=== PATIENT | male | born 1970 | race African-American/Black ===

== ENCOUNTER → 2016-05-26 | Emergency (ER) | payer OTHER ==
[~2016-05-26] MED LIST: LOSARTAN 50MG/HCTZ 12.5MG 1 TAB (FP) PO SCH; METOPROLOL SUCCINATE 25 MG TAB.SR.24H (FP) PO SCH; amLODIPine BESYLATE 5 MG TABLET (FP) PO SCH
[2016-05-26 19:25] VITALS: BP 149/102; PULSE 84; TEMP 98.1; BMI 37.5
--- NOTE | 2016-05-26 19:37 | PDOC ---
History of Present Illness - General History Source: Patient Exam Limitations: No Limitations - History of Present Illness Presenting Symptoms: Chest Pain Timing/Duration: reports: intermittent <Annette Garvey - Last Filed: 05/26/16 22:37> <Pari Couch - Last Filed: 05/31/16 07:20> - General Chief Complaint: Chest Pain Stated Complaint: CHEST PAIN Time Seen by Provider: 05/26/16 19:32 Past History - Travel Traveled outside of the country in the last 30 days: No Close contact w/someone who was outside of country & ill: No - Past Medical History COPD: Yes (sleep apnea) HTN: Yes - Surgical History Cholecystectomy: Yes - Immunization History Td Vaccination: Yes Immunization Up to Date: Yes - Psycho/Social/Smoking Cessation Hx Anxiety: No Suicidal Ideation: No Smoking Status: No Smoking History: Never smoked Years of Tobacco Use: 0 Have you smoked in the past 12 months: No Number of Cigarettes Smoked Daily: 0 Cigars Per Day: 0 Information on smoking cessation initiated: No Hx Alcohol Use: No Drug/Substance Use Hx: No Substance Use Type: None <Annette Garvey - Last Filed: 05/26/16 22:37> <Pari Couch - Last Filed: 05/31/16 07:20> - Past Medical History Allergies/Adverse Reactions: Allergies Allergy/AdvReac Type Severity Reaction Status Date / Time No Known Allergies Allergy Verified 05/26/16 19:16 Home Medications: Ambulatory Orders Amlodipine Besylate [Norvasc -] 5 mg PO DAILY 11/26/15 Losartan/Hydrochlorothiazide [Losartan-Hctz 50-12.5 mg Tab] 1 each PO DAILY 11/01 Metoprolol Succinate [Toprol Xl -] 25 mg PO DAILY 01/25/16 Review of Systems - Review of Systems Able to Perform ROS?: Yes Is the patient limited Canadian proficient: No <Annette Garvey - Last Filed: 05/26/16 22:37> <Pari Couch - Last Filed: 05/31/16 07:20> - Review of Systems Comments:: 05/26/16 20:13 CONSTITUTIONAL: Absent: fever, chills, diaphoresis, generalized weakness, malaise, loss of appetite HEENT: Absent: rhinorrhea, nasal congestion, throat pain, throat swelling, difficulty swallowing, mouth swelling, ear pain, eye pain, visual Changes CARDIOVASCULAR: left substernal cp Absent: loss of consciousness, palpitations, irregular heart rate, peripheral edema RESPIRATORY: Absent: cough, shortness of breath, dyspnea with exertion, orthopnea, wheezing, stridor, hemoptysis GASTROINTESTINAL: Absent: abdominal pain, abdominal distension, nausea, vomiting, diarrhea, constipation, melena, hematochezia GENITOURINARY: Absent: dysuria, frequency, urgency, hesitancy, hematuria, flank pain, genital pain MUSCULOSKELETAL: Absent: myalgia, arthralgia, joint swelling SKIN: Absent: rash, itching, pallor HEMATOLOGIC/IMMUNOLOGIC: Absent: easy bleeding, easy bruising, lymphadenopathy, frequent infections ENDOCRINE: Absent: unexplained weight gain, unexplained weight loss, heat intolerance, cold intolerance NEUROLOGIC: frontal mild cisneros Absent: focal weakness or paresthesias, dizziness, unsteady gait, seizure, mental status changes, bladder or bowel incontinence PSYCHIATRIC: Absent: anxiety, depression, suicidal or homicidal ideation, hallucinations. ( Annette Garvey) *Physical Exam <Annette Garvey - Last Filed: 05/26/16 22:37> <Pari Couch - Last Filed: 05/31/16 07:20> - Vital Signs Last Vital Signs Temp Pulse Resp BP Pulse Ox 98.1 F 84 20 149/102 98 05/26/16 19:16 05/26/16 19:16 05/26/16 19:16 05/26/16 19:16 05/26/16 19:16 - Physical Exam Comments: 05/26/16 20:13 GENERAL: Well developed, well nourished. Awake and alert. No acute distress. HEENT: Normocephalic, atraumatic. PERRLA, EOMI. No conjunctival pallor. Sclera are non- icteric. Moist mucous membranes. Oropharynx is clear. NECK: Supple. Full ROM. No JVD. Carotid pulses 2+ and symmetric, without bruits. No thyromegaly. No lymphadenopathy. CARDIOVASCULAR: Regular rate and rhythm. No murmurs, rubs, or gallops. Distal pulses are 2+ and symmetric. PULMONARY: No evidence of respiratory distress. Lungs clear to auscultation bilaterally. No wheezing, rales or rhonchi. ABDOMINAL: Soft. Non-tender. Non-distended. No rebound or guarding. No organomegaly. Normoactive bowel sounds. MUSCULOSKELETAL Normal range of motion at all joints. No bony deformities or tenderness. No CVA tenderness. EXTREMITIES: No cyanosis. No clubbing. No edema. No calf tenderness. SKIN: Warm and dry. Normal capillary refill. No rashes. No jaundice. NEUROLOGICAL: Alert, awake, appropriate. Cranial nerves 2-12 intact. No deficits to light touch and temperature in face, upper extremities and lower extremities. No motor deficits in the in face, upper extremities and lower extremities. Normoreflexic in the upper and lower extremities. Normal speech. Toes are down- going bilaterally. Gait is normal without ataxia. PSYCHIATRIC: Cooperative. Good eye contact. Appropriate mood and affect. (Annette Garvey) Heart Score/ECG Review - History History: Slightly suspicious - Electrocardiogram EKG: Normal - Age Age: >/= 65 - Risk Factors Risk Factors Heart Score: Yes Positive family hx of cardiac disease, Yes Hx Obesity Based on the list above the patient has:: 1-2 risk factors - Troponin Troponin: </= normal limit - Score Heart Score - Total: 3 - ECG Intrepretation Rhythm: Regular Rhythm - Shafer Shafer: Normal <Annette Garvey - Last Filed: 05/26/16 22:37> ED Treatment Course - LABORATORY CBC & Chemistry Diagram: 05/26/16 19:41 05/26/16 19:41 <Annette Garvey - Last Filed: 05/26/16 22:37> - LABORATORY CBC & Chemistry Diagram: 05/26/16 19:41 05/26/16 19:41 <Pari Couch - Last Filed: 05/31/16 07:20> - ADDITIONAL ORDERS Additional order review: 05/26/16 19:41 RBC 4.99 MCV 85.1 MCHC 33.0 RDW 13.8 MPV 8.7 Neutrophils % 52.1 Lymphocytes % 34.4 D Monocytes % 10.3 H Eosinophils % 2.0 Basophils % 1.2 Progress Note <Annette Garvey - Last Filed: 05/26/16 22:37> <Pari Couch - Last Filed: 05/31/16 07:20> - Progress Note Progress Note: Rope Cutter: Dr. Jang [phone] PMD: Dr. Andersen [phone] 45-year-old male with a past medical history of questionable cardiac stenting 3 years ago at [place] presents to the emergency department complaining of left-sided substernal 8/10 nonradiating, pressure-like discomfort without nausea /vomiting, fevers/chills/diarrhea since yesterday. Patient states while driving to [employer] yesterday at approximately 11 AM, he felt a sudden onset of a frontal pressure-like headache. 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 Approximately 15 minutes later, his frontal headache subsided and he started experiencing left-sided chest pain without radiculopathy. Patient 's chest pain is alleviated with Excedrin which she took at 11 AM today. The pain is exacerbated on movement, deep inspiration. Patient spoke to his communications programmer who referred him to the emergency department. 2114hrs: Called Dr Jang 2149 hrs: Spoke to Dr. Shearer/communications programmer, req pt be admitted to obs and obtain 2nd set of troponin/6 hr after the first Req admit to pmd/Dr. Andersen 2156hrs: Called Dr. Andersen (Annette Garvey) *DC/Admit/Observation/Transfer <Annette Garvey - Last Filed: 05/26/16 22:37> <Pari Couch - Last Filed: 05/31/16 07:20> Diagnosis at time of Disposition: Chest pain Qualifiers: Chest pain type: chest pain on breathing Qualified Code(s): R07.1 - Chest pain on breathing - Discharge Dispostion Disposition: AGAINST MEDICAL ADVICE - Referrals Referrals: Margaret Andersen MD [Primary Care Provider] - Huy Pa MD [Staff Physician] - - Patient Instructions Printed Discharge Instructions: DI for Chest Pain Additional Instructions: You refused to stay in the emergency department for admission/observation. Your communications programmer has been notified of your complaints as you had informed him prior to coming to the ER and I have informed him after seeing you in the ER. We both agree that you should be admitted for observation but you adamantly refused. You understand that do not seem symptoms, results can be detrimental but not limited to severe heart condition, sudden , stroke. You informed to return back to the emergency department for persistent/ worsening symptoms. You insists on signing out AGAINST MEDICAL ADVICE. Your strongly advised numerous times to stay and be admitted but you adamantly refused. You constantly tell me that you will stay if the symptoms are worse. You have been informed that your blood pressure is not well controlled. You informed to follow-up with your primary care physician and communications programmer. - Attestations Physician Attestion: I reviewed the case with the mid-level practitioner and agree with the mid- level practitioner's assessment, diagnosis and disposition. (Pari Couch)
[2016-05-26 20:14] LABS: BASOPHIL 1.2 % (0-2.0); MCH 28.1 pg (25.7-33.7); MEAN CELL VOLUME 85.1 fl (80-96); MEAN PLT VOLUME 8.7 fl (7.5-11.1); NEUTROPHILS 52.1 % (42.8-82.8); PLATELET COUNT 247 K/MM3 (134-434); RDW 13.8 % (11.9-15.9); WHITE BLOOD COUNT 7.1 K/mm3 (4.0-10.0)
[2016-05-26 20:46] LABS: ALBUMIN 3.6 g/dl (3.4-5.0); ANION GAP 10 (8-16); BILIRUBIN,TOTAL 0.2 mg/dL (0.2-1.0); CALCIUM 8.6 mg/dL (8.5-10.1); CO2 27 mmol/L (21-32); CREATININE 1.3 mg/dL (0.7-1.3); GLUCOSE,RANDOM 86 mg/dL (74-106); SGPT/ALT 37 U/L (12-78); TOT PROT 7.5 g/dl (6.4-8.2)
[2016-05-26 20:49] LABS: ALK PHOS 71 U/L (45-117); TROPONIN I 0.03 ng/ml (0.00-0.05)
[2016-05-26 20:51] LABS: SGOT/AST 31 U/L (15-37)
--- NOTE | 2016-05-27 13:02 | EKG ---
Test Reason : Blood Pressure : / mmHG Vent. Rate : 062 BPM Atrial Rate : 062 BPM P-R Int : 168 ms QRS Dur : 076 ms QT Int : 418 ms P-R-T Axes : 025 -19 -05 degrees QTc Int : 424 ms NORMAL SINUS RHYTHM MODERATE VOLTAGE CRITERIA FOR LVH, MAY BE NORMAL VARIANT CANNOT RULE OUT SEPTAL INFARCT (CITED ON OR BEFORE 26-NOV-2015) ABNORMAL ECG WHEN COMPARED WITH ECG OF 25-JAN-2016 13:33, T WAVE AMPLITUDE HAS INCREASED IN ANTERIOR LEADS CLINICAL CORRELATION IS RECOMMENDED Confirmed by ABHISHEK ORTEGA, MACK ([id number]) on 05/27/2016 1:01:51 PM Referred By: Confirmed By:MACK WEISS MD
== END | disposition left against medical advice (07) ==
LOC: JER 19:09
DX: R07.1 Chest pain on breathing (principal); I10 Essential (primary) hypertension; J44.9 Chronic obstructive pulmonary disease, unspecified; G47.30 Sleep apnea, unspecified
CPT/HCPCS: 36415; 80053; 82550; 82553; 84484; 85025; 93005; 93010; 99282-25

== ENCOUNTER 2017-01-14 23:38 | Emergency (ER) | payer OTHER ==
[2017-01-15 00:43] VITALS: BP 125/90; PULSE 56; TEMP 97; BMI 35.4
[2017-01-15] MEDS ORDERED: TETRACAINE 0.5% OPHTH SOLN 2 ML BOTTLE OD ONE (00:57)
[2017-01-15] MEDS ORDERED: TETRACAINE 0.5% OPHTH SOLN 2 ML BOTTLE ONE (01:00)
--- NOTE | 2017-01-15 01:15 | PDOC ---
Attending Attestation - HPI HPI: 01/15/17 02:09 Patient is a 46 year old male with a significant past medical history of HTN, CAD with stent placement, and sleep apnea who presents to the ED s/p foreign object in right eye that occurred hour prior to arrival. Patient reports picking up garbage in a [employer] when a piece of garbage flew and stuck him in his right eye. Patient does not report applying anything to right eye after initial incident. Denies chest pain, SOB. Denies fever, chills. Denies nausea, vomiting. Denies any other symptoms. Allergies: None Social history: No smoking. No alcohol. No illicit drugs. Surgical history: Cholecystectomy. PMD: Dr. Andersen. <Luis F Norton - Last Filed: 01/15/17 02:09> - Resident Resident Name: Andrew Mendoza - ED Attending Attestation I have performed the following: I have examined & evaluated the patient, The case was reviewed & discussed with the resident, I agree w/resident's findings & plan, Exceptions are as noted - Physicial Exam PE: 01/15/17 01:29 *Physical Exam General Appearance: Yes: Appropriately Dressed. No: Apparent Distress, Intoxicated HEENT: positive: EOMI, CHANTELLE,FB on the lateral aspect of conjunctiva right eye, Normal ENT Inspection, Normal Voice, TMs Normal, Pharynx Normal. negative: Pale Conjunctivae, Photophobia, Scleral Icterus (R), Scleral Icterus (L) Neck: positive: Trachea midline, Normal Thyroid, Supple. negative: Tender, Rigid, Carotid bruit, Stridor, Lymphadenopathy (R), Lymphadenopathy (L), Thyromegaly Respiratory/Chest: positive: Lungs Clear, Normal Breath Sounds. negative: Chest Tender, Respiratory Distress, Accessory Muscle Use, Labored Respiration, RES, Crackles, Rales, Rhonchi, Stridor, Wheezing, Dullness Cardiovascular: positive: Regular Rhythm, Regular Rate, S1, S2. negative: Edema , JVD, Murmur, Bradycardia, Tachycardia Vascular Pulses: Dorsalis-Pedis (R): 2+, Doralis-Pedis (L): 2+ Gastrointestinal/Abdominal: positive: Normal Bowel Sounds, Flat, Soft. negative : Tender, Organomegaly, Pulsatile Mass, Increased Bowel Sounds, Decreased BS, Distended, Guarding, Rebound, Hernia, Hepatomegaly, Spleenomegaly Lymphatic: negative: Adenopathy, Tenderness Musculoskeletal: positive: Normal Inspection. negative: CVA Tenderness, Decreased Range of Motion Extremity: positive: Normal Capillary Refill, Normal Inspection, Normal Range of Motion, Pelvis Stable. negative: Tender, Pedal Edema, Swelling, Erythema Integumentary: positive: Normal Color, Dry, Warm. negative: Cyanotic, Erythema , Jaundice, Rash Neurologic: positive: dean of women II-XII NML intact, Fully Oriented, Alert, Normal Mood/ Affect, Motor Strength 5/5. negative: EOM Palsy, Facial Droop, Sensory Deficit - Medical Decision Making 01/15/17 19:45 Pt treated and released. <Zain Kenyon - Last Filed: 01/15/17 19:45>
[2017-01-15] MEDS ORDERED: ARTIFICIAL TEARS (POLYVINYL ALCOHOL 1.4%) OPTH DROPS OU ONE (01:38)
[2017-01-15] MEDS ORDERED: CIPROFLOXACIN 0.3% EYE DROPS 5 ML BOTTLE OD SCH (01:45)
[2017-01-15] MEDS ORDERED: CIPROFLOXACIN HCL 0.3% OPHTH 2.5ML BOTTLE ONE (01:55)
--- NOTE | 2017-01-15 02:13 | PDOC ---
History of Present Illness - General Chief Complaint: Foreign Body (FB) Stated Complaint: INJURY Time Seen by Provider: 01/15/17 00:31 - History of Present Illness Initial Comments: 01/15/17 07:56 46M with remote history of CAD presents to the ED after he found himself cleaning the garbage in a [employer] and felt an unidentified object lodge itself in his eye earlier this afternoon. He since complains of foreign object sensation but no photophobia, no discharge , no change in vision. Past History - Past Medical History Allergies/Adverse Reactions: Allergies Allergy/AdvReac Type Severity Reaction Status Date / Time No Known Allergies Allergy Verified 01/15/17 00:39 Home Medications: Ambulatory Orders Amlodipine Besylate [Norvasc -] 5 mg PO DAILY 11/26/15 Losartan/Hydrochlorothiazide [Losartan-Hctz 50-12.5 mg Tab] 1 each PO DAILY 11/01 Metoprolol Succinate [Toprol Xl -] 25 mg PO DAILY 01/25/16 COPD: Yes (sleep apnea) HTN: Yes - Surgical History Cholecystectomy: Yes - Immunization History Td Vaccination: Yes Immunization Up to Date: Yes - Suicide/Smoking/Psychosocial Hx Smoking Status: No Smoking History: Never smoked Years of Tobacco Use: 0 Have you smoked in the past 12 months: No Number of Cigarettes Smoked Daily: 0 Cigars Per Day: 0 Information on smoking cessation initiated: No Hx Alcohol Use: No Drug/Substance Use Hx: No Substance Use Type: None Review of Systems - Review of Systems Able to Perform ROS?: Yes Is the patient limited Macedonian proficient: No Constitutional: No: Symptoms Reported HEENTM: Yes: See HPI, Eye Pain. No: Blurred Vision, Tearing, Recent change in vision, Double Vision, Cataracts, Ear Pain, Ocular Prothesis, Ear Discharge Respiratory: No: Symptoms reported Cardiac (ROS): No: Symptoms Reported ABD/GI: No: Symptoms Reported : No: Symptoms Reported Musculoskeletal: No: Symptoms Reported Integumentary: No: Symptoms Reported Neurological: No: Symptoms reported *Physical Exam - Vital Signs Last Vital Signs Temp Pulse Resp BP Pulse Ox 97 F L 56 L 14 125/90 96 01/15/17 00:40 01/15/17 00:40 01/15/17 00:40 01/15/17 00:40 01/15/17 00:40 - Physical Exam General Appearance: Yes: Nourished, Appropriately Dressed, Mild Distress, Obese HEENT: positive: CHANTELLE, Normal ENT Inspection, Other (Brown unidentifiable [id number] object at 9o clock on the right ocular globe. ). negative: Muffled/ Hoarse voice Respiratory/Chest: positive: Lungs Clear, Normal Breath Sounds. negative: Chest Tender, Respiratory Distress Cardiovascular: positive: Regular Rhythm, Regular Rate, S1, S2 Vascular Pulses: Dorsalis-Pedis (R): 2+, Doralis-Pedis (L): 2+ Gastrointestinal/Abdominal: positive: Normal Bowel Sounds, Soft, Protuberent. negative: Tender Musculoskeletal: positive: Normal Inspection. negative: CVA Tenderness Extremity: positive: Normal Capillary Refill, Normal Inspection ED Treatment Course - Medications Given in the ED: ED Medications Discontinued Medications Generic Name Dose Route Start Last Admin Trade Name Freq PRN Reason Stop Dose Admin Tetracaine HCl 1 drop 01/15/17 00:57 01/15/17 01:01 Pontocaine OD 01/15/17 00:58 1 bottle ONCE ONE Administration Medical Decision Making - Medical Decision Making 01/15/17 08:03 46M with foreign object lodged in right eye. tetracaine applied to numb right eye globe. First attempt using q-tip unsuccessful. It seems that the object is lodged in deeper layers of the sclera. 12 hours have passed. Second attempt using 30g needle object touched but still not able to remove it. Patient states his eye feels more comfortable. Patient discharge with the rest of the tetracaine, clindamycin eye drops and lubricant eye drop with a referral to Dr. Nickolas Muñiz as well as the express recommendation to make an appointment as soon as possible for full removal of object, if possible within the next day or 2. *DC/Admit/Observation/Transfer Diagnosis at time of Disposition: Foreign body in eyeball, right - Discharge Dispostion Disposition: HOME Admit: No - Referrals Referrals: Margaret Andersen MD [Primary Care Provider] - Nickolas Muñiz MD [Staff Physician] - - Patient Instructions Printed Discharge Instructions: DI for Corneal Foreign Body-Eye, DI for Foreign Body in the Eye Additional Instructions: Call Dr. Nickolas Muñiz Ophtalmologist [facility] to schedule appointment for your eye. Use medication as directed. Come back to ER in the meantime for any new, concerning or worsening symptoms. - Post Discharge Activity
== END 2017-01-15 02:27 | disposition home or self-care (01) ==
LOC: JER 23:38
PROC: 08C0XZZ Extirpation of Matter from Right Eye, External Approach (ICD-10-PCS; principal; 2017-01-14)
DX: T15.81XA Foreign body in other and multiple parts of external eye, right eye, initial encounter (principal); X58.XXXA Exposure to other specified factors, initial encounter; Y93.89 Activity, other specified; Y92.22 Religious institution as the place of occurrence of the external cause; Y99.8 Other external cause status
CPT/HCPCS: 99281-25

== ENCOUNTER 2018-01-13 17:49 | Observation (INO) | payer OTHER ==
[2018-01-13 17:55] VITALS: BMI 35.4
--- NOTE | 2018-01-13 17:55 | PDOC ---
Rapid Medical Evaluation Time Seen by Provider: 01/13/18 17:52 Medical Evaluation: Allergies Allergy/AdvReac Type Severity Reaction Status Date / Time No Known Allergies Allergy Verified 01/15/17 00:39 01/13/18 17:52 I have performed a brief in-person evaluation of this patient. The patient presents with a chief complaint of: hemoptysis Pertinent physical exam findings: Lungs CTAB. RRR. S1S2. No m/r/g. Denies AC therapy. I have ordered the following: labs, CXR, EKG, urine The patient will proceed to the ED for further evaluation. Discharge Disposition - Diagnosis Hemoptysis - Referrals - Patient Instructions - Post Discharge Activity
[2018-01-13 19:03] LABS: BASO % 1.1 % (0-2.0); EOS % 2.9 % (0-4.5); HEMATOCRIT 44.1 % (35.4-49); HEMOGLOBIN 15.5 GM/dL (11.7-16.9); LYMPH % 20.5 % (8-40); MCH 29.8 pg (25.7-33.7); MCHC 35.1 g/dl (32.0-35.9); MEAN PLT VOLUME 9.2 fl (7.5-11.1); NEUT % 66.5 % (42.8-82.8); PLATELET COUNT 221 K/MM3 (134-434); RBC 5.19 M/mm3 (4.00-5.60); RDW 13.6 % (11.9-15.9)
[2018-01-13 19:26] LABS: INR 0.93 (0.83-1.09)
[2018-01-13 19:28] LABS: ALBUMIN 3.6 g/dl (3.4-5.0); ALK PHOS 90 U/L (45-117); ANION GAP 9 MMOL/L (8-16); BILIRUBIN,TOTAL 0.3 mg/dL (0.2-1); BLOOD UREA NITROGEN 19 mg/dL (7-18); CALCIUM 8.3 mg/dL (8.5-10.1); CHLORIDE 106 mmol/L (98-107); CO2 25 mmol/L (21-32); CREATININE 1.7 mg/dL (0.55-1.3); GLUCOSE,RANDOM 117 mg/dL (74-106); MAGNESIUM 2.5 mg/dL (1.8-2.4); POTASSIUM 3.6 mmol/L (3.5-5.1); SGOT/AST 18 U/L (15-37); SGPT/ALT 28 U/L (13-61); SODIUM 140 mmol/L (136-145); TOT PROT 7.7 g/dl (6.4-8.2)
--- NOTE | 2018-01-13 20:10 | PDOC ---
History of Present Illness - General Chief Complaint: Chest Pain Stated Complaint: PCP ADMIT/CHEST PAIN Time Seen by Provider: 01/13/18 17:52 History Source: Patient Exam Limitations: No Limitations - History of Present Illness Initial Comments: This is a 47 YOM with h/o CAD s/p cardiac cath and HTN who was referred into the ED for chest pain and blood-tinged sputum today after having been coughing a significant amount over the past 4 days. He was seen in his PCP Dr. Andersen's office today for the chest pain, had an EKG showing TWI in II, III, and aVF, and was sent to the ED for admission. Dr. Andersen has already spoken with Dr. Pa. Dr. Andersen requested a CT chest/abdomen/pelvis. The patient himself notes a low grade discomfort but no other symptoms. He denies massive bleeding while coughing. He denies f/c/n/v/d/c, black/bloody stool, SOB, diaphoresis, etc. Past History - Past Medical History Allergies/Adverse Reactions: Allergies Allergy/AdvReac Type Severity Reaction Status Date / Time No Known Allergies Allergy Verified 01/13/18 17:55 Home Medications: Ambulatory Orders Amlodipine Besylate [Norvasc -] 5 mg PO DAILY 11/26/15 Losartan/Hydrochlorothiazide [Losartan-Hctz 50-12.5 mg Tab] 1 each PO DAILY 11/01 Metoprolol Succinate [Toprol Xl -] 25 mg PO DAILY 01/25/16 Cardiac Disorders: Yes (cardiac cath) COPD: Yes (sleep apnea) HTN: Yes - Surgical History Cardiac Surgery: Yes (cardiac cath) Cholecystectomy: Yes - Immunization History Td Vaccination: Yes Immunization Up to Date: Yes - Suicide/Smoking/Psychosocial Hx Smoking Status: No Smoking History: Never smoked Years of Tobacco Use: 0 Have you smoked in the past 12 months: No Number of Cigarettes Smoked Daily: 0 Cigars Per Day: 0 Hx Alcohol Use: No Drug/Substance Use Hx: No Substance Use Type: None Review of Systems - Review of Systems Able to Perform ROS?: Yes Comments:: GEN: no fever, chills, malaise, generalized weakness, or weight change HEENT: no ear pain, sore throat, vision change, or eye pain CV: chest pain, no palpitations, lightheadedness, syncope, or edema RESP: cough, blood-tinged sputum, no wheezing, or SOB GI: upper abdominal pain, no nausea, vomiting, diarrhea, constipation, or white/ black/bloody stool : no dysuria, hematuria, incontinence, retention, bleeding, or discharge MSK: no neck/back pain, muscle weakness/pain, or joint swelling/pain NEURO: no headache, seizure, vertigo, numbness, tingling, or focal weakness PSYCH: no substance use, no behavior change SKIN: no jaundice, no rash ROS otherwise negative except as noted in HPI *Physical Exam - Vital Signs Last Vital Signs Temp Pulse Resp BP Pulse Ox 98.3 F 74 18 124/85 98 01/13/18 17:52 01/13/18 17:52 01/13/18 17:52 01/13/18 17:52 01/13/18 17:52 01/13/18 20:54 GENERAL: alert, comfortable, well-appearing, A/Ox4, no distress, answers questions appropriately, accompanied at bedside by female furniture manager HEENT: PERRLA, EOMI, moist mucous membranes NECK/BACK: no midline ttp, no spinal stepoff or deformity, no hematoma, full ROM , neck supple CARDIOVASCULAR: regular rate/rhythm, normal S1S2, no MGR, strong peripheral pulses, capillary refill <2 seconds, extremities wwp, no edema LUNGS/RESPIRATORY: no respiratory distress, CTAB GI/ABDOMEN: protuberant, symmetric [id number], normoactive BS, soft, no ttp, no midline pulsatile masses : no CVA tenderness EXTREMITIES: no muscle atrophy, no acute deformity, no edema SKIN: warm and dry, no pallor, no jaundice, no rash, no bruising, no skin breakdown, no cuts, no lesions NEUROLOGICAL: GCS 15, CN II-XII grossly intact, 5/5 strength proximally and distally, no facial droop Moderate Sedation - Procedure Monitoring Vital Signs: Procedure Monitoring Vital Signs Temperature 98.3 F 01/13/18 17:52 Pulse Rate 74 01/13/18 17:52 Respiratory Rate 18 01/13/18 17:52 Blood Pressure 124/85 01/13/18 17:52 O2 Sat by Pulse Oximetry (%) 98 01/13/18 17:52 Heart Score/ECG Review - History History: Slightly suspicious - Electrocardiogram EKG: Non specific repolarization disturbance - Age Age: 45-65 - Risk Factors Risk Factors Heart Score: Yes Hx Hypertension, Yes Hx Obesity Based on the list above the patient has:: 1-2 risk factors - Troponin Troponin: </= normal limit - Score Heart Score - Total: 3 #1 01/13/18 21:01 EKG performed 01/13/18 at 18:41 shows SR rate 64 with normal axis and intervals , TWI in III and aVF, no additional ST-T changes. ED Treatment Course - LABORATORY CBC & Chemistry Diagram: 01/13/18 18:43 01/13/18 18:43 - ADDITIONAL ORDERS Additional order review: Laboratory Results 01/13/18 01/13/18 18:43 18:43 PT with INR 11.00 INR 0.93 Sodium 140 Potassium 3.6 Chloride 106 Carbon Dioxide 25 Anion Gap 9 BUN 19 H Creatinine 1.7 H Creat Clearance w eGFR 43.23 Random Glucose 117 H Calcium 8.3 L Magnesium 2.5 H Total Bilirubin 0.3 AST 18 ALT 28 Alkaline Phosphatase 90 Creatine Kinase 155 Creatine Kinase Index 0.6 CK-MB (CK-2) < 1.0 Troponin I 0.04 Total Protein 7.7 Albumin 3.6 01/13/18 18:43 RBC 5.19 MCV 85.0 MCHC 35.1 RDW 13.6 MPV 9.2 Neutrophils % 66.5 D Lymphocytes % 20.5 D Monocytes % 9.0 Eosinophils % 2.9 Basophils % 1.1 Medical Decision Making - Medical Decision Making 01/13/18 20:06 Adult patient p/w hemoptysis. Initial Vital Signs Temp Pulse Resp BP Pulse Ox 98.3 F 74 18 124/85 98 01/13/18 17:52 01/13/18 17:52 01/13/18 17:52 01/13/18 17:52 01/13/18 17:52 Exam: As noted in Physical Exam section. DDX IBNLT PNA, CHF, lung malignancy, PE, tracheal or bronchial trauma e.g. from severe cough or FB, mitral stenosis, TB, granulomatosis with polyangiitis (lungs , upper airways, and kidneys), Goodpasture syndrome (lungs/lower airways and kidneys), Alport syndrome (hereditary nephritis), or secondary causes such as hematemesis (e.g. PUD, varices, esophagitis, gastritis, Simran-Denny, Boerhaave , etc), aortoenteric fistula, epistaxis, oropharyngeal trauma, etc. W/U ordered: CBCD CMP Mg Phos T&S Coags UA UCx CXR EKG TX ordered: IVF Pepcid Maalox EKG: Reviewed; results as noted in ECG Review section. CXR: Laboratory Tests 01/13/18 01/13/18 01/13/18 18:43 18:43 18:43 WBC 8.0 RBC 5.19 Hgb 15.5 Hct 44.1 MCV 85.0 MCH 29.8 MCHC 35.1 RDW 13.6 Plt Count 221 MPV 9.2 Absolute Neuts (auto) 5.3 Neutrophils % 66.5 D Lymphocytes % 20.5 D Monocytes % 9.0 Eosinophils % 2.9 Basophils % 1.1 Nucleated RBC % 0 PT with INR 11.00 INR 0.93 Sodium 140 Potassium 3.6 Chloride 106 Carbon Dioxide 25 Anion Gap 9 BUN 19 H Creatinine 1.7 H Creat Clearance w eGFR 43.23 Random Glucose 117 H Calcium 8.3 L Magnesium 2.5 H Total Bilirubin 0.3 AST 18 ALT 28 Alkaline Phosphatase 90 Creatine Kinase 155 Creatine Kinase Index 0.6 CK-MB (CK-2) < 1.0 Troponin I 0.04 Total Protein 7.7 Albumin 3.6 Urine Color Urine Appearance Urine pH Ur Specific [place] Urine Protein Urine Glucose (UA) Urine Ketones Urine Blood Urine Nitrite Urine Bilirubin Urine Urobilinogen Ur Leukocyte Esterase Urine WBC (Auto) Urine RBC (Auto) 01/13/18 20:00 WBC RBC Hgb Hct MCV MCH MCHC RDW Plt Count MPV Absolute Neuts (auto) Neutrophils % Lymphocytes % Monocytes % Eosinophils % Basophils % Nucleated RBC % PT with INR INR Sodium Potassium Chloride Carbon Dioxide Anion Gap BUN Creatinine Creat Clearance w eGFR Random Glucose Calcium Magnesium Total Bilirubin AST ALT Alkaline Phosphatase Creatine Kinase Creatine Kinase Index CK-MB (CK-2) Troponin I Total Protein Albumin Urine Color Ltyellow Urine Appearance Clear Urine pH 5.0 Ur Specific [place] 1.014 Urine Protein Negative Urine Glucose (UA) Negative Urine Ketones Negative Urine Blood 1+ H Urine Nitrite Negative Urine Bilirubin Negative Urine Urobilinogen Negative Ur Leukocyte Esterase Negative Urine WBC (Auto) <1 Urine RBC (Auto) 1 01/13/18 20:40 The Pt is unsafe for discharge at this time. They require further hospital observation, workup, and treatment. Microblog sent to [facility] for admission. Blank Decision to Admit order is placed per ED protocol. 01/13/18 20:35 I have spoken with Dr. Andersen who requests admission to Tele Obs. Dr. Andersen requests CT imaging of chest/abdomen/pelvis without contrast given JUDIE. 01/13/18 20:51 I have spoken with FUR PULLER Neema Saldana, patient going to Tele Obs. I have corrected the Decision to Admit order with Dr. Wright's name. I have placed consult order to Dr. Pa. *DC/Admit/Observation/Transfer Diagnosis at time of Disposition: Hemoptysis, JUDIE (acute kidney injury) Chest pain Qualifiers: Chest pain type: unspecified Qualified Code(s): R07.9 - Chest pain, unspecified - Discharge Dispostion Disposition: HOME Condition at time of disposition: Guarded Decision to Admit order: Yes - Referrals Referrals: Margaret Andersen MD [Primary Care Provider] - - Patient Instructions - Post Discharge Activity
[2018-01-13 20:22] LABS: URINE APPEARANCE CLEAR; URINE BILIRUBIN NEGATIVE (<2.0 mg/dL); URINE COLOR LTYELLOW; URINE GLUCOSE (UA) NEGATIVE (NEGATIVE); URINE KETONE NEGATIVE (NEGATIVE); URINE LEUK ESTERASE NEGATIVE (NEGATIVE); URINE NITRITE NEGATIVE (NEGATIVE); URINE PROTEIN NEGATIVE (NEGATIVE); URINE UROBILINOGEN NEGATIVE mg/dL (0.2-1.0)
--- NOTE | 2018-01-13 20:34 | PDOC ---
Attending Attestation - HPI HPI: 01/13/18 20:39 Patient is a 47 year old male with a significant past medical history of HTN, cardiac catheter, who presents to the ED with complaints of chest pain that began earlier today. Patient reports experiencing left lower chest pain that he states radiates towards his left arm, prompting him to see his PCP today. He reports PCP advised him to come into the ED for further evaluation and admission after conducting ECG that showed abnormal results. Patient reports experiencing associated symptoms of productive cough that began x5 days ago, with slight blood tinged sputum. Denies chest pain, Sob. Denies nausea, vomiting. Denies fevers, chills. Denies contact with sick individuals, out of state travelling.. Denies dysuria, hematuria. Denies diarrhea, constipation. Denies trauma to affected area. Denies any other symptoms. Allergies: None Social history: No smoking. No alcohol. No illicit drugs. Surgical history: x2 cardiac stents. PMD: Dr. Andersen <Luis F Norton - Last Filed: 01/13/18 20:39> - Resident Resident Name: Shayy Fernandez - ED Attending Attestation I have performed the following: I have examined & evaluated the patient, The case was reviewed & discussed with the resident, I agree w/resident's findings & plan, Exceptions are as noted - Physicial Exam PE: 01/13/18 20:34 Agree with exam as documented by resident - Medical Decision Making 01/13/18 22:12 Sent for admission from PCP for CP a/w new TWI on EKG f/u labs including cardiac markers, repeat ekg, cxr for admission to evtn ACS 01/13/18 22:14 <Bandar Yin - Last Filed: 01/13/18 22:14>
[2018-01-13] MEDS ORDERED: FAMOTIDINE 20 MG/50 ML IVPB 20 MG/50 ML MG IVPB ONE ×2 (20:39→22:09)
[2018-01-13] MEDS ORDERED: MAG HYDROX/AL HYDROX/SIMETH -MYLANTA- ORAL SUSPENSION PO ONE (20:39)
--- NOTE | 2018-01-13 20:41 | HP ---
Admitting History and Physical - Primary Care Physician PCP: Margaret Andersen - Admission Chief Complaint: Cough, Hemoptysis, Chest Pain, Epigastric Pain History of Present Illness: This is a 47 y/o man with a PMHx of: HTN, CAD (Cardiac Cath, denies Stent placement), Morbid Obesity, Herpes. Who presents to the ED for cough with hemoptysis, epigastric pain, and chest pain x3 days. Patient reports having epigastric pain, decreased appetite with burning to his chest. He reports having diarrhea over the last few day, now resolved. Patient reports having a productive cough with white-green phlegm since Thursday and noted blood tinged sputum yesterday. Patient reports going to his PMD today for eval, having an EKG which he was told was abnormal. Patient states that his EKG's are always "abnormal" which is why he had a Cardiac Cath which showed no blockage. Patient denies fever, chills, dizziness, CARRERA, SOB, N/V/constipation, melena, hematuria, dysuria. History Source: Patient Limitations to Obtaining History: No Limitations - Past Medical History Cardiovascular: Yes: CAD, HTN Infectious Disease: Yes: STD's (Herpes) - Past Surgical History Past Surgical History: Yes: Cholecystectomy Additional Past Surgical History: Cardiac Cath - Smoking History Smoking history: Never smoked Have you smoked in the past 12 months: No Aproximately how many cigarettes per day: 0 - Alcohol/Substance Use Hx Alcohol Use: No History of Substance Use: reports: None - Social History Usual Living Arrangement: Yes: With Spouse ADL: Independent History of Recent Travel: No Home Medications - Allergies Allergies/Adverse Reactions: Allergies Allergy/AdvReac Type Severity Reaction Status Date / Time No Known Allergies Allergy Verified 01/13/18 17:55 - Home Medications Home Medications: Ambulatory Orders Amlodipine Besylate [Norvasc -] 5 mg PO DAILY 11/26/15 Losartan/Hydrochlorothiazide [Losartan-Hctz 50-12.5 mg Tab] 1 each PO DAILY 11/01 Metoprolol Succinate [Toprol Xl -] 25 mg PO DAILY 01/25/16 Family Disease History - Family Disease History Family Disease History: Respiratory: Father (Pneumonia- ), Mother ( Asthma), Brother (Asthma), Sister (Asthma) Review of Systems - Review of Systems Constitutional: reports: Loss of Appetite. denies: Chills, Diaphoresis, Fever, Night Sweats, Weakness Eyes: reports: No Symptoms HENT: reports: No Symptoms Neck: reports: No Symptoms Cardiovascular: reports: Chest Pain Respiratory: reports: Hemoptysis Gastrointestinal: reports: Abdominal Pain, Diarrhea Genitourinary: reports: Frequency, Other (rash to groin) Breasts: reports: No Symptoms Reported Musculoskeletal: reports: No Symptoms Integumentary: reports: No Symptoms Neurological: reports: No Symptoms Endocrine: reports: No Symptoms Hematology/Lymphatic: reports: No Symptoms Psychiatric: reports: No Symptoms Physical Examination Vital Signs: Vital Signs Temperature 98.3 F 01/13/18 17:52 Pulse Rate 74 01/13/18 17:52 Respiratory Rate 18 01/13/18 17:52 Blood Pressure 124/85 01/13/18 17:52 O2 Sat by Pulse Oximetry (%) 98 01/13/18 17:52 Constitutional: Yes: Well Nourished, No Distress, Calm, Obese Eyes: Yes: WNL, Conjunctiva Clear, EOM Intact, PERRL HENT: Yes: Atraumatic, Normocephalic Neck: Yes: WNL, Supple, Trachea Midline Cardiovascular: Yes: WNL, Regular Rate and Rhythm, S1, S2 Respiratory: Yes: WNL, Regular, CTA Bilaterally Gastrointestinal: Yes: Normal Bowel Sounds, Soft, Abdomen, Obese, Tenderness, Epigastrium ...Rectal Exam: Yes: WNL Renal/: Yes: Other (patient declined exam of groin) Breast(s): Yes: WNL Musculoskeletal: Yes: WNL Extremities: Yes: WNL Edema: No Peripheral Pulses WNL: Yes Neurological: Yes: WNL ...Motor Strength: WNL Psychiatric: Yes: WNL, Alert, Oriented Labs: CBC, BMP 01/13/18 18:43 01/13/18 18:43 Laboratory Results - last 24 hr 01/13/18 01/13/18 01/13/18 18:43 18:43 18:43 WBC 8.0 RBC 5.19 Hgb 15.5 Hct 44.1 MCV 85.0 MCH 29.8 MCHC 35.1 RDW 13.6 Plt Count 221 MPV 9.2 Absolute Neuts (auto) 5.3 Neutrophils % 66.5 D Lymphocytes % 20.5 D Monocytes % 9.0 Eosinophils % 2.9 Basophils % 1.1 Nucleated RBC % 0 PT with INR 11.00 INR 0.93 Sodium 140 Potassium 3.6 Chloride 106 Carbon Dioxide 25 Anion Gap 9 BUN 19 H Creatinine 1.7 H Creat Clearance w eGFR 43.23 Random Glucose 117 H Calcium 8.3 L Magnesium 2.5 H Total Bilirubin 0.3 AST 18 ALT 28 Alkaline Phosphatase 90 Creatine Kinase 155 Creatine Kinase Index 0.6 CK-MB (CK-2) < 1.0 Troponin I 0.04 Total Protein 7.7 Albumin 3.6 Urine Color Urine Appearance Urine pH Ur Specific [place] Urine Protein Urine Glucose (UA) Urine Ketones Urine Blood Urine Nitrite Urine Bilirubin Urine Urobilinogen Ur Leukocyte Esterase Urine WBC (Auto) Urine RBC (Auto) 01/13/18 20:00 WBC RBC Hgb Hct MCV MCH MCHC RDW Plt Count MPV Absolute Neuts (auto) Neutrophils % Lymphocytes % Monocytes % Eosinophils % Basophils % Nucleated RBC % PT with INR INR Sodium Potassium Chloride Carbon Dioxide Anion Gap BUN Creatinine Creat Clearance w eGFR Random Glucose Calcium Magnesium Total Bilirubin AST ALT Alkaline Phosphatase Creatine Kinase Creatine Kinase Index CK-MB (CK-2) Troponin I Total Protein Albumin Urine Color Ltyellow Urine Appearance Clear Urine pH 5.0 Ur Specific [place] 1.014 Urine Protein Negative Urine Glucose (UA) Negative Urine Ketones Negative Urine Blood 1+ H Urine Nitrite Negative Urine Bilirubin Negative Urine Urobilinogen Negative Ur Leukocyte Esterase Negative Urine WBC (Auto) <1 Urine RBC (Auto) 1 Imaging - Results Chest X-ray: Image Reviewed Cat Scan: Report Reviewed, Image Reviewed Ultrasound: Report Reviewed, Image Reviewed EKG: Image Reviewed Problem List - Problems (1) Epigastric abdominal tenderness Assessment/Plan: Likely secondary to dyspepsia vs ACS Abdominal CT- slightly fluid filled, slightly distended loops, ?recent fluid ingestion vs possible diarrheal illness GI cocktail given in ED with some relief Monitor CBC, BMP Monitor vitals Pepcid Code(s): R10.816 - EPIGASTRIC ABDOMINAL TENDERNESS (2) Chest pain Assessment/Plan: r/o ACS HEART Score 4 JUSTINE 1 Continue cardiac monitoring Serial Enzymes Appreciate Cardiology consult Asa Echo Code(s): R07.9 - CHEST PAIN, UNSPECIFIED Qualifiers: Chest pain type: unspecified Qualified Code(s): R07.9 - Chest pain, unspecified (3) Hemoptysis Assessment/Plan: r/o PE vs TB Wells Score 1 CT Chest- no acute pathology Continue to monitor and treat with interventions accordingly Consider Pulmonology consult if condition worsens Code(s): R04.2 - HEMOPTYSIS (4) HTN (hypertension) Assessment/Plan: stable Monitor BP Patient unsure of current meds, will need the day team to confirm with pt's home pharmacy Monitor renal function Code(s): I10 - ESSENTIAL (PRIMARY) HYPERTENSION (5) CAD (coronary artery disease) Assessment/Plan: continue home meds when verified Asa EKG- reviewed Code(s): I25.10 - ATHSCL HEART DISEASE OF [place] CORONARY ARTERY W/O ANG PCTRS Assessment/Plan This is a 47 y/o man with a PMHx of HTN, CAD, RANDI. Placed in Tele Observation for Chest Pain r/o ACS, Hemoptysis, JUDIE for further evaluation of their emergent condition. FEN PO fluids as tolerated Replete lytes as needed Low Na Diet DVT ppx OOB SCDs Consider AC if LOS > 48 hrs Code Status: Full Code Dispo: Observation Visit type - Emergency Visit Emergency Visit: Yes ED Registration Date: 01/13/18 Care time: The patient presented to the Emergency Department on the above date and was hospitalized for further evaluation of their emergent condition. - New Patient This patient is new to me today: Yes Date on this admission: 01/13/18 - Critical Care Critical Care patient: No
[2018-01-13] MEDS ORDERED: MAG HYDROX/AL HYDROX/SIMETH 30 ML UNIT-DOSE CUP ONE (22:09)
[2018-01-14 07:18] LABS: BASO % 0.7 % (0-2.0); EOS % 3.8 % (0-4.5); HEMATOCRIT 42.5 % (35.4-49); HEMOGLOBIN 14.9 GM/dL (11.7-16.9); LYMPH % 20.5 % (8-40); MCH 29.9 pg (25.7-33.7); MCHC 35.1 g/dl (32.0-35.9); MEAN CELL VOLUME 85.2 fl (80-96); MEAN PLT VOLUME 8.9 fl (7.5-11.1); MONO % 12.5 % (3.8-10.2); NEUT % 62.5 % (42.8-82.8); PLATELET COUNT 193 K/MM3 (134-434); RBC 4.99 M/mm3 (4.00-5.60); WHITE BLOOD COUNT 6.7 K/mm3 (4.0-10.0)
[2018-01-14 07:45] LABS: ANION GAP 7 MMOL/L (8-16); BLOOD UREA NITROGEN 14 mg/dL (7-18); CALCIUM 8.2 mg/dL (8.5-10.1); CHLORIDE 106 mmol/L (98-107); CHOLESTEROL 104 mg/dL (50-200); CO2 28 mmol/L (21-32); CREATININE 1.3 mg/dL (0.55-1.3); GLUCOSE,RANDOM 94 mg/dL (74-106); HDL CHOLESTEROL 35 mg/dL (40-60); MAGNESIUM 2.5 mg/dL (1.8-2.4); PHOSPHOROUS 2.9 mg/dL (2.5-4.9); POTASSIUM 3.7 mmol/L (3.5-5.1); SODIUM 141 mmol/L (136-145); TRIGLYCERIDES 88 mg/dL (0-150)
[2018-01-14] MEDS ORDERED: FAMOTIDINE 20 MG/50 ML IVPB 20 MG/50 ML MG IVPB ONE (08:41)
[2018-01-14] MEDS ORDERED: ASPIRIN 81 MG CHEWABLE TABLETS ONE (08:41)
--- NOTE | 2018-01-14 09:28 | CON.CARD ---
Cardiology Consult (text) - Consultation Consultation Note: Consult Dictated IMP: Chronic HTN Hypertensive heart disease with LVH Non-obstructive CAD, ectatic coronaries Episode of scant hemoptysis REC: Low suspicion for pulmonary embolism: normal O2 saturation, no tachycardia and asx. Cardiac enzymes negative x 3 sets- ECG always has NSST changes secondary to LVH and hypertensive heart disease. Patient has had non-obstx disease on cath previously and no ischemia on nuclear stress 2016. Ok for outpatient f/u from CV standpoint. Further work up of ?hemoptysis as per PMD.
[2018-01-14] MEDS ORDERED: ASPIRIN 81 MG CHEWABLE TABLETS PO SCH (10:00)
[2018-01-14] MEDS ORDERED: FAMOTIDINE 20 MG/50 ML IVPB 20 MG/50 ML MG IVPB SCH (10:00)
--- NOTE | 2018-01-14 11:11 | CONS ---
CARDIOLOGY CONSULTATION DATE OF CONSULTATION: 01/14/2018 REQUESTING PHYSICIAN: Margaret Andersen MD REASON FOR CONSULTATION: Abnormal ECG. The patient is a 47-year-old male with a past medical history of chronic hypertension, hypertensive heart disease, non-obstructive coronary disease with ectatic coronary arteries on cardiac catheterization, who was sent to the emergency department for further evaluation after seeing his PMD yesterday and describing an episode of hemoptysis. Upon further questioning, the patient said he had a single episode of what he now describes as scant blood-tinged sputum approximately 1 week ago. He denies shortness of breath, fevers, or chills. He denies any recurrent hemoptysis. He denies exertional chest pain. He denies any lower extremity edema, PND, or orthopnea. PAST MEDICAL HISTORY: As above and includes chronic hypertension and LVH. ALLERGIES: He has no known drug allergies. CURRENT MEDICATIONS AT HOME: Include metoprolol succinate 25 mg p.o. daily, losartan/HCT 50/12.5 daily, and amlodipine 5 mg daily. FAMILY HISTORY: Negative for early coronary artery disease. SOCIAL HISTORY: Nonsmoker. 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 PHYSICAL EXAMINATION: General: He is alert, oriented. No distress. Vital Signs: Afebrile, temperature 98.2; pulse 62 and regular; blood pressure 118/88; 100% on room air. HEENT: Anicteric. Neck: No JVD or bruits. Heart: S1, S2. Regular. There is a S4 gallop. Chest: Clear. Abdomen: Mildly distended but soft and nontender. Extremities: No edema. ECG showed normal sinus rhythm at 64 beats per minute with nonspecific T-wave inversions inferiorly - patient has chronic nonspecific T-wave changes. His chest x-ray showed no acute pathology. White blood cell count 6.7, hematocrit 42.5, platelets 193. INR 0.93. Sodium 141, potassium 3.7. Creatinine normal at 1.3. Magnesium 2.5. CK 155. Troponin 0.04, 0.04, 0.04, negative x3 sets. Chest CT showed no acute pathology, done without contrast. IMPRESSION: 1. Chronic hypertension. 2. Hypertensive heart disease with left ventricular hypertrophy. 3. Non-obstructive coronary artery disease with ectatic coronary arteries. 4. Episode of scant hemoptysis, now resolved. RECOMMENDATIONS: There is low clinical suspicion for pulmonary embolism: Normal O2 saturation, no tachycardia, and patient is asymptomatic. Cardiac enzymes are negative x3 sets. His ECG always has nonspecific ST and T-wave changes that are secondary to his LVH and hypertensive heart disease. He has had nonobstructive coronary disease on catheterizations previously with ectatic coronary arteries, and a repeat stress test in 2016 showing no ischemia. From the cardiac standpoint, he is okay to follow up as an outpatient for chronic management of hypertension. Further workup of the questionable episode of hemoptysis as per PMD. Thank you. Will follow. ALKA JACKSON M.D. [id number]
--- NOTE | 2018-01-14 11:22 | DS ---
Physical Examination Vital Signs: Vital Signs Temperature 98.2 F 01/14/18 06:16 Pulse Rate 62 01/14/18 08:47 Respiratory Rate 17 01/14/18 08:47 Blood Pressure 118/88 01/14/18 08:47 O2 Sat by Pulse Oximetry (%) 98 01/14/18 08:52 Constitutional: Yes: Calm Cardiovascular: Yes: Regular Rate and Rhythm, S1, S2 Respiratory: Yes: CTA Bilaterally Gastrointestinal: Yes: Normal Bowel Sounds, Soft Edema: No Neurological: Yes: Alert, Oriented Labs: CBC, BMP 01/14/18 06:15 01/14/18 06:00 Discharge Summary Reason For Visit: ACUTE KIDNEY INJURY,HEMOPTYSIS,CHEST PAIN Current Active Problems JUDIE (acute kidney injury) (Acute) CAD (coronary artery disease) (Acute) Chest pain (Acute) Epigastric abdominal tenderness (Acute) HTN (hypertension) (Acute) Hemoptysis (Acute) Hospital Course: Primary Care Physician PCP: Margaret Andersen - Admission Chief Complaint: Cough, Hemoptysis, Chest Pain, Epigastric Pain History of Present Illness: This is a 47 y/o man with a PMHx of: HTN, CAD (Cardiac Cath, denies Stent placement), Morbid Obesity, Herpes. Who presents to the ED for cough with hemoptysis, epigastric pain, and chest pain x3 days. Patient reports having epigastric pain, decreased appetite with burning to his chest. He reports having diarrhea over the last few day, now resolved. Patient reports having a productive cough with white-green phlegm since Thursday and noted blood tinged sputum yesterday. Patient reports going to his PMD today for eval, having an EKG which he was told was abnormal. Patient states that his EKG's are always "abnormal" which is why he had a Cardiac Cath which showed no blockage. Patient denies fever, chills, dizziness, CARRERA, SOB, N/V/constipation, melena, hematuria, dysuria. in ER patient got aspirin and famotidine patient got Chest CT and abdomen CT scan no PE no appendicitis noted patient seen in ER no chest pain no sob no cough per patient he had just one episode when i he coughed and notice slight blood, he says he has not been coughing he went to his PMD yesterday and was sent in for abnormal EKG he says he has history of abnormal ekg no epigastric pain - patient is comfortable in bed Condition: Improved - Instructions Referrals: Margaret Andersen MD [Primary Care Provider] - Disposition: HOME - Home Medications Comprehensive Discharge Medication List: Ambulatory Orders Amlodipine Besylate [Norvasc -] 5 mg PO DAILY 11/26/15 Losartan/Hydrochlorothiazide [Losartan-Hctz 50-12.5 mg Tab] 1 each PO DAILY 11/01 Metoprolol Succinate [Toprol Xl -] 25 mg PO DAILY 01/25/16
[2018-01-14 11:53] VITALS: BP 128/84; PULSE 70; TEMP 98
--- NOTE | 2018-01-14 11:58 | EKG ---
Test Reason : Blood Pressure : / mmHG Vent. Rate : 064 BPM Atrial Rate : 064 BPM P-R Int : 182 ms QRS Dur : 088 ms QT Int : 400 ms P-R-T Axes : 034 -26 -20 degrees QTc Int : 412 ms NORMAL SINUS RHYTHM VOLTAGE CRITERIA FOR LEFT VENTRICULAR HYPERTROPHY NONSPECIFIC T WAVE ABNORMALITY ABNORMAL ECG WHEN COMPARED WITH ECG OF 26-MAY-2016 19:18, MINIMAL CRITERIA FOR SEPTAL INFARCT ARE NO LONGER PRESENT Confirmed by JACKSON ORTEGA, TIFFANIE ([id number]) on 01/14/2018 11:58:41 AM Referred By: Confirmed By:TIFFANIE PAZ MD
--- NOTE | 2018-01-14 14:47 | ECHO ---
Name: HOLLIEKOFI Exam:Adult Echocardiogram Study Date: 01/14/2018 07:42 AM Age: 47 yrs Reason For Study: Chest pain Height: 69 in Weight: 240 lb BSA: 2.2 m2 MMode/2D Measurements & Calculations IVSd: 1.3 cm Ao root diam: 3.3 cm LVIDd: 4.2 cm LA dimension: 3.0 cm LVIDs: 2.5 cm LVPWd: 0.96 cm EDV(Teich): 78.8 ml LAV (MOD-bp): 59.4 ml ESV(Teich): 21.8 ml Doppler Measurements & Calculations MV E max zack: 74.2 cm/sec AI P1/2t: 1309 msec MV A max zack: 51.4 cm/sec MV E/A: 1.4 MV dec time: 0.13 sec AI max zack: 230.8 cm/sec MR max zack: 340.4 cm/sec AI max P.3 mmHg MR max P.9 mmHg AI dec slope: 51.6 cm/sec2 TR max zack: 220.2 cm/sec Med Peak E' Zack: 8.6 cm/sec TR max P.4 mmHg Med E/e': 8.6 Lat Peak E' Zack: 12.1 cm/sec Lat E/e': 6.1 Procedure A complete two-dimensional transthoracic echocardiogram was performed (2D, M-mode, Doppler and color flow Doppler). Left Ventricle The left ventricular size, thickness and function are normal. The left ventricular ejection fraction is normal. Ejection Fraction = 60-65%. The left ventricular wall motion is normal. Right Ventricle The right ventricle is normal in size and function. Atria Normal left and right atrial size and function. Mitral Valve There is trace mitral regurgitation. Tricuspid Valve There is mild tricuspid regurgitation. Right ventricular systolic pressure is normal. Aortic Valve The aortic valve is trileaflet. No hemodynamically significant valvular aortic stenosis. Trace aortic regurgitation. Pulmonic Valve There is no pulmonic valvular regurgitation. Great Vessels The aortic root is normal size. Pericardium/Pleura There is no pericardial effusion. Interpretation Summary The left ventricular size, thickness and function are normal The right ventricle is normal in size and function. There is trace mitral regurgitation. There is mild tricuspid regurgitation. Trace aortic regurgitation. MD Rigoberto Bronson 01/14/2018 02:46 PM
== END 2018-01-14 11:55 | disposition home or self-care (01) ==
LOC: JER 17:49 → JERBED 20:16
PROVIDERS: ADMIT Internal Medicine; ATTEND Family Medicine
PROC: 3E033GC Introduction of Other Therapeutic Substance into Peripheral Vein, Percutaneous Approach (ICD-10-PCS; principal; 2018-01-13)
DX: N17.9 Acute kidney failure, unspecified (principal); R04.2 Hemoptysis; R10.816 Epigastric abdominal tenderness; R07.9 Chest pain, unspecified; I10 Essential (primary) hypertension; I25.10 Atherosclerotic heart disease of native coronary artery without angina pectoris; G47.30 Sleep apnea, unspecified; Z95.5 Presence of coronary angioplasty implant and graft; E66.09 Other obesity due to excess calories; Z68.35 Body mass index [BMI] 35.0-35.9, adult
CPT/HCPCS: 36415; 71046-TC-FY; 71250-TC; 74176-TC; 80048; 80053; 80061; 81003; 81015; 82550; 82553; 83721; 83735; 84100; 84484; 85025; 85610; 93005; 93010; 93306-TC; 99285-25; G0378

== ENCOUNTER 2018-11-09 15:09 | Emergency (ER) | payer OTHER ==
--- NOTE | 2018-11-09 15:14 | PDOC ---
Rapid Medical Evaluation Time Seen by Provider: 11/09/18 15:13 Medical Evaluation: Allergies Allergy/AdvReac Type Severity Reaction Status Date / Time No Known Allergies Allergy Verified 11/09/18 15:13 11/09/18 15:13 HPI: L knee injury after a fall 7 days ago at work PE: No gross deficits ORDERS:x-ray Discharge Disposition - Diagnosis Contusion of left knee - Referrals - Patient Instructions - Post Discharge Activity
[2018-11-09 15:17] VITALS: BP 130/82; PULSE 69; TEMP 97.9; BMI 37.8
--- NOTE | 2018-11-09 15:40 | PDOC ---
History of Present Illness - General Chief Complaint: Injury Stated Complaint: LT. KNEE PAIN/ HAND PAIN Time Seen by Provider: 11/09/18 15:13 History Source: Patient - History of Present Illness Occurred: reports: last week Lower Extremity Pain Location: right: knee, other (hand) Method of Injury: Yes: fell Past History - Past Medical History Allergies/Adverse Reactions: Allergies Allergy/AdvReac Type Severity Reaction Status Date / Time No Known Allergies Allergy Verified 11/09/18 15:13 Home Medications: Ambulatory Orders Amlodipine Besylate [Norvasc -] 5 mg PO DAILY 11/26/15 Metoprolol Succinate [Toprol XL -] 25 mg PO DAILY 01/25/16 Aspirin [ASA -] 81 mg PO DAILY tab.chew 01/14/18 Lisinopril 10 mg PO DAILY #30 tablet MDD 1 01/14/18 Ergocalciferol [Vitamin D2] 50,000 unit PO Q7D@1000 11/09/18 Losartan Potassium [Cozaar -] mg PO DAILY 11/09/18 Cardiac Disorders: Yes (cardiac cath) COPD: Yes (sleep apnea) HTN: Yes - Surgical History Cardiac Surgery: Yes (cardiac cath) Cholecystectomy: Yes - Immunization History Td Vaccination: Yes Immunization Up to Date: Yes - Suicide/Smoking/Psychosocial Hx Smoking Status: No Smoking History: Never smoked Years of Tobacco Use: 0 Have you smoked in the past 12 months: No Number of Cigarettes Smoked Daily: 0 Cigars Per Day: 0 Hx Alcohol Use: No Drug/Substance Use Hx: No Substance Use Type: None Review of Systems - Review of Systems Musculoskeletal: Yes: Joint Pain. No: Back Pain, Joint Swelling, Neck Pain *Physical Exam - Vital Signs Last Vital Signs Temp Pulse Resp BP Pulse Ox 97.9 F 69 16 130/82 99 11/09/18 15:15 11/09/18 15:15 11/09/18 15:15 11/09/18 15:15 11/09/18 15:15 - Physical Exam General Appearance: Yes: Appropriately Dressed. No: Apparent Distress HEENT: positive: Normal Voice Neck: positive: Supple Respiratory/Chest: negative: Respiratory Distress Extremity: positive: Swelling (L knee w/ no swelling or ttp, FROMI, localized ttp to volar aspect of distal 5th metacarpal, no swelling, FROMI to 5th digit) Integumentary: positive: Dry, Warm Neurologic: positive: Fully Oriented, Alert, Normal Mood/Affect Medical Decision Making - Medical Decision Making 11/09/18 15:42 48-year-old male, history of HTN, here with multiple injuries s/p fall. 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 Unsure how he hurt his right palm. Since then has been having pain to the affected sites. Is able to bear weight. see exam M/l sprain s/p injury Exam only remarkable for sig localized tto to R palm Xrays neg for acute bony pathology -dc w/ OTC meds orn pain, PMD f/u as needed *DC/Admit/Observation/Transfer Diagnosis at time of Disposition: Contusion of left knee Qualifiers: Encounter type: initial encounter Qualified Code(s): S80.02XA - Contusion of left knee, initial encounter Sprain of hand, right Qualifiers: Encounter type: initial encounter Qualified Code(s): S63.91XA - Sprain of unspecified part of right wrist and hand, initial encounter - Discharge Dispostion Disposition: HOME Condition at time of disposition: Good - Referrals Referrals: Margaret Andersen MD [Primary Care Provider] - - Patient Instructions Printed Discharge Instructions: DI for Knee Sprain Additional Instructions: Your Xrays did not show any broken bones Take motrin or tylenol as needed for pain Follow up with your PMD as needed - Post Discharge Activity Forms/Work/School Notes: Back to Work
[2018-11-09] MEDS ORDERED: IBUPROFEN 400 MG TABLET (FP) PO ONE ×2 (15:42→15:43)
== END 2018-11-09 16:09 | disposition home or self-care (01) ==
LOC: JERFT 15:09
DX: S80.02XA Contusion of left knee, initial encounter (principal); S63.8X1A Sprain of other part of right wrist and hand, initial encounter; W17.89XA Other fall from one level to another, initial encounter; Y93.89 Activity, other specified; Y92.89 Other specified places as the place of occurrence of the external cause; Y99.0 Civilian activity done for income or pay; I10 Essential (primary) hypertension; G47.30 Sleep apnea, unspecified; Z98.61 Coronary angioplasty status
CPT/HCPCS: 73130-TC-RT-FY; 73562-TC-LT-FY; 99281-25

== ENCOUNTER 2019-12-30 10:17 | Emergency (ER) | payer OTHER ==
[2019-12-30 10:30] VITALS: BP 112/78; PULSE 89; TEMP 98.8; BMI 39.9
[2019-12-30] MEDS ORDERED: DEXAMETHASONE LIQUID 0.5 MG/5 ML PO ONE (10:47)
[2019-12-30] MEDS ORDERED: DEXAMETHASONE SOD PHOSPHATE 10 MG/1 ML VIAL ONE (11:02)
== END 2019-12-30 13:26 | disposition home or self-care (01) ==
LOC: JERFT 10:17
DX: J03.90 Acute tonsillitis, unspecified (principal)
CPT/HCPCS: 87070; 87880; 99284-25

== ENCOUNTER 2020-03-14 10:25 | Emergency (ER) | payer OTHER ==
[2020-03-14 10:34] VITALS: PULSE 56; BMI 38.9
[2020-03-14] MEDS ORDERED: MAG HYDROX/AL HYDROX/SIMETH 30 ML UNIT-DOSE CUP PO ONE (12:00)
[2020-03-14] MEDS ORDERED: FAMOTIDINE 20 MG/50 ML IVPB 20 MG/50 ML MG IVPB ONE ×2 (12:00→13:40)
[2020-03-14] MEDS ORDERED: MAG HYDROX/AL HYDROX/SIMETH 30 ML UNIT-DOSE CUP ONE (13:40)
[2020-03-14 14:04] LABS: BASO % 1.2 % (0-2.0); EOS % 0.6 % (0-4.5); HEMATOCRIT 47.7 % (35.4-49); HEMOGLOBIN 16.2 GM/dL (11.7-16.9); LYMPH % 29.4 % (8-40); MCH 29.2 pg (25.7-33.7); MEAN PLT VOLUME 8.4 fl (7.5-11.1); MONO % 9.9 % (3.8-10.2); NEUT % 58.9 % (42.8-82.8); PLATELET COUNT 265 K/MM3 (134-434); RBC 5.55 M/mm3 (4.00-5.60); RDW 13.3 % (11.9-15.9); WHITE BLOOD COUNT 6.7 K/mm3 (4.0-10.0)
[2020-03-14 14:21] LABS: POTASSIUM 3.9 mmol/L (3.5-5.1)
[2020-03-14 14:23] LABS: ALBUMIN 3.9 g/dl (3.4-5.0); BLOOD UREA NITROGEN 12.1 mg/dL (7-18); CALCIUM 9.1 mg/dL (8.5-10.1)
[2020-03-14 14:26] LABS: CREATININE 1.4 mg/dL (0.55-1.3)
[2020-03-14 14:28] LABS: BILIRUBIN,TOTAL 0.5 mg/dL (0.2-1); TOT PROT 8.1 g/dl (6.4-8.2)
[2020-03-14 14:51] VITALS: TEMP 98.1
[2020-03-14 18:33] VITALS: BP 122/76
== END 2020-03-14 18:40 ==
LOC: JER 10:25
PROC: 3E033NZ Introduction of Analgesics, Hypnotics, Sedatives into Peripheral Vein, Percutaneous Approach (ICD-10-PCS; principal; 2020-03-14)
DX: R07.9 Chest pain, unspecified (principal)
CPT/HCPCS: 36415; 71046-TC-FY; 74177-TC; 80053; 83690; 84484; 85025; 93005; 93010; 99285-25; Q9967

== ENCOUNTER 2020-11-29 16:05 | Observation (INO) | payer OTHER ==
[2020-11-29 16:16] VITALS: BMI 40.7
[2020-11-29 17:52] LABS: BASO % 1.2 % (0-2.0); EOS % 2.9 % (0-4.5); HEMATOCRIT 46.5 % (35.4-49); HEMOGLOBIN 15.8 GM/dL (11.7-16.9); LYMPH % 30.9 % (8-40); MCH 28.9 pg (25.7-33.7); MCHC 33.9 g/dl (32.0-35.9); MEAN CELL VOLUME 85.3 fl (80-96); MEAN PLT VOLUME 8.5 fl (7.5-11.1); MONO % 13.2 % (3.8-10.2); NEUT % 51.8 % (42.8-82.8); PLATELET COUNT 238 10^3/uL (134-434); RBC 5.46 M/mm3 (4.00-5.60); RDW 13.7 % (11.9-15.9); WHITE BLOOD COUNT 6.8 K/mm3 (4.0-10.0)
[2020-11-29] MEDS ORDERED: ASPIRIN 81 MG CHEWABLE TABLETS ONE (17:59)
[2020-11-29 18:16] LABS: ALBUMIN 3.6 g/dl (3.4-5.0)
[2020-11-29 18:20] LABS: CREATININE 1.3 mg/dL (0.55-1.3)
[2020-11-29 18:21] LABS: BILIRUBIN,TOTAL 0.3 mg/dL (0.2-1); TOT PROT 7.7 g/dl (6.4-8.2)
[2020-11-29] MEDS ORDERED: amLODIPine BESYLATE 5 MG TABLET (FP) PO ONE (21:07)
[2020-11-29] MEDS ORDERED: amLODIPine BESYLATE 5 MG TABLET (FP) ONE (21:26)
[2020-11-29] MEDS ORDERED: ACETAMINOPHEN 325 MG TABLET (FP) PO PRN (21:38)
[2020-11-29] MEDS ORDERED: ACETAMINOPHEN 325 MG TABLET (FP) ONE (21:46)
[2020-11-30 01:34] VITALS: TEMP 97.7
[2020-11-30] MEDS ORDERED: amLODIPine BESYLATE 5 MG TABLET (FP) PO ONE (02:34)
[2020-11-30 03:23] VITALS: BP 143/96; PULSE 54
[2020-11-30] MEDS ORDERED: ASPIRIN 81 MG CHEWABLE TABLETS PO SCH (10:00)
== END 2020-11-30 06:00 | disposition left against medical advice (07) ==
LOC: JER 16:05 → JERBED 19:11
PROVIDERS: ADMIT Internal Medicine; ATTEND Family Medicine
DX: K21.9 Gastro-esophageal reflux disease without esophagitis (principal); I25.10 Atherosclerotic heart disease of native coronary artery without angina pectoris; I11.9 Hypertensive heart disease without heart failure; I10 Essential (primary) hypertension; B00.9 Herpesviral infection, unspecified; G47.30 Sleep apnea, unspecified
CPT/HCPCS: 36415; 71046-TC-FY; 80053; 82550; 82553; 84484; 85025; 93005; 93010; 99285-25; C9803; G0378; U0003; U0005

== ENCOUNTER 2020-11-30 16:00 | Observation (INO) | payer OTHER ==
[2020-11-30 16:11] VITALS: BMI 40.6
[2020-11-30] MEDS ORDERED: ASPIRIN 81 MG CHEWABLE TABLETS PO ONE (16:49)
[2020-11-30] MEDS ORDERED: ASPIRIN 81 MG CHEWABLE TABLETS ONE (17:23)
[2020-11-30 18:35] LABS: BASO % 1.4 % (0-2.0); EOS % 3.5 % (0-4.5); HEMATOCRIT 44.6 % (35.4-49); HEMOGLOBIN 15.2 GM/dL (11.7-16.9); LYMPH % 28.4 % (8-40); MCH 28.9 pg (25.7-33.7); MEAN CELL VOLUME 84.8 fl (80-96); MEAN PLT VOLUME 8.8 fl (7.5-11.1); MONO % 8.7 % (3.8-10.2); PLATELET COUNT 223 10^3/uL (134-434); RBC 5.26 M/mm3 (4.00-5.60); RDW 13.8 % (11.9-15.9); WHITE BLOOD COUNT 6.4 K/mm3 (4.0-10.0)
[2020-11-30 18:56] LABS: ALBUMIN 3.4 g/dl (3.4-5.0); BLOOD UREA NITROGEN 18.5 mg/dL (7-18); CALCIUM 8.8 mg/dL (8.5-10.1)
[2020-11-30 18:59] LABS: CREATININE 1.5 mg/dL (0.55-1.3)
[2020-11-30 19:01] LABS: BILIRUBIN,TOTAL 0.3 mg/dL (0.2-1); TOT PROT 7.4 g/dl (6.4-8.2)
[2020-11-30] MEDS ORDERED: ACETAMINOPHEN 325 MG TABLET (FP) ONE ×2 (21:17→21:19)
[2020-11-30] MEDS: ACETAMINOPHEN 325 MG TABLET (FP) PO PRN (21:22)
[2020-11-30] MEDS: HEPARIN NA (PORCINE) 5,000 UNITS/ML 1ML VIAL SQ SCH (23:25)
[2020-12-01] MEDS: HEPARIN NA (PORCINE) 5,000 UNITS/ML 1ML VIAL SQ SCH ×3 (05:59→21:37)
[2020-12-01 07:23] LABS: BASO % 1.5 % (0-2.0); EOS % 4.5 % (0-4.5); HEMATOCRIT 45.1 % (35.4-49); HEMOGLOBIN 15.1 GM/dL (11.7-16.9); LYMPH % 31.9 % (8-40); MCHC 33.6 g/dl (32.0-35.9); MEAN CELL VOLUME 86.4 fl (80-96); MEAN PLT VOLUME 8.8 fl (7.5-11.1); MONO % 12.7 % (3.8-10.2); NEUT % 49.4 % (42.8-82.8); PLATELET COUNT 220 10^3/uL (134-434); RBC 5.22 M/mm3 (4.00-5.60); RDW 13.7 % (11.9-15.9); WHITE BLOOD COUNT 6.2 K/mm3 (4.0-10.0)
[2020-12-01 07:30] LABS: INR 0.97 (0.83-1.09); PROTHROMBIN TIME (PATIENT) 10.9 SEC (9.7-13.0)
[2020-12-01 07:33] LABS: ACTIVATED PTT 36.4 SECONDS (25.2-36.5)
[2020-12-01] MEDS: ACETAMINOPHEN 325 MG TABLET (FP) PO PRN ×2 (08:38→18:40)
[2020-12-01] MEDS: ASPIRIN 81 MG CHEWABLE TABLETS PO SCH ×2 (08:43→10:44)
[2020-12-01] MEDS ORDERED: POLYETHYLENE GLYCOL (HEALTHYLAX) 3350 17 GM PACKET PO PRN (08:45)
[2020-12-01 09:38] LABS: BLOOD UREA NITROGEN 17.6 mg/dL (7-18)
[2020-12-01 09:39] LABS: CALCIUM 8.5 mg/dL (8.5-10.1)
[2020-12-01 09:41] LABS: CREATININE 1.3 mg/dL (0.55-1.3)
[2020-12-01] MEDS: LISINOPRIL 10 MG TABLET PO SCH (10:44)
[2020-12-01] MEDS: amLODIPine BESYLATE 5 MG TABLET (FP) PO SCH (10:44)
[2020-12-01] MEDS: PANTOPRAZOLE 20 MG TABLET PO SCH (10:44)
[2020-12-02] MEDS: HEPARIN NA (PORCINE) 5,000 UNITS/ML 1ML VIAL SQ SCH ×3 (06:12→21:56)
[2020-12-02 08:27] LABS: BASO % 0.9 % (0-2.0); EOS % 4.3 % (0-4.5); HEMATOCRIT 45.3 % (35.4-49); HEMOGLOBIN 15.6 GM/dL (11.7-16.9); LYMPH % 39.8 % (8-40); MCH 29.3 pg (25.7-33.7); MCHC 34.4 g/dl (32.0-35.9); MEAN CELL VOLUME 85.2 fl (80-96); MEAN PLT VOLUME 8.8 fl (7.5-11.1); PLATELET COUNT 221 10^3/uL (134-434); RBC 5.31 M/mm3 (4.00-5.60); RDW 13.9 % (11.9-15.9); WHITE BLOOD COUNT 5.2 K/mm3 (4.0-10.0)
[2020-12-02] MEDS: LISINOPRIL 10 MG TABLET PO SCH (09:10)
[2020-12-02] MEDS: PANTOPRAZOLE 20 MG TABLET PO SCH (09:10)
[2020-12-02 09:11] LABS: CALCIUM 8.6 mg/dL (8.5-10.1)
[2020-12-02] MEDS: ASPIRIN 81 MG CHEWABLE TABLETS PO SCH (09:11)
[2020-12-02] MEDS: amLODIPine BESYLATE 5 MG TABLET (FP) PO SCH (09:11)
[2020-12-02 09:12] LABS: ALBUMIN 3.3 g/dl (3.4-5.0); BLOOD UREA NITROGEN 19.8 mg/dL (7-18)
[2020-12-02 09:15] LABS: BILIRUBIN,TOTAL 0.4 mg/dL (0.2-1); CREATININE 1.3 mg/dL (0.55-1.3); TOT PROT 7.3 g/dl (6.4-8.2)
[2020-12-02] MEDS: ACETAMINOPHEN 325 MG TABLET (FP) PO PRN (21:14)
[2020-12-03] MEDS: HEPARIN NA (PORCINE) 5,000 UNITS/ML 1ML VIAL SQ SCH ×2 (06:04→14:37)
[2020-12-03 06:14] VITALS: BP 132/88; PULSE 59; TEMP 98.2
[2020-12-03] MEDS: LISINOPRIL 10 MG TABLET PO SCH ×2 (07:58→11:34)
[2020-12-03] MEDS: amLODIPine BESYLATE 5 MG TABLET (FP) PO SCH ×2 (07:58→11:33)
[2020-12-03] MEDS ORDERED: REGADENOSON 0.4 MG/5 ML PRE-FILLED SYRINGE IVPUSH ONE ×2 (09:54→10:30)
[2020-12-03] MEDS ORDERED: AMINOPHYLLINE 250 MG/10 ML VIAL ONE (10:50)
[2020-12-03] MEDS ORDERED: AMINOPHYLLINE 250 MG/10 ML VIAL IVPUSH ONE (11:00)
[2020-12-03] MEDS: ASPIRIN 81 MG CHEWABLE TABLETS PO SCH (11:34)
[2020-12-03] MEDS: PANTOPRAZOLE 20 MG TABLET PO SCH (11:34)
== END 2020-12-03 15:45 | disposition home or self-care (01) ==
LOC: JER 16:00 → INTOOBSV 17:05 → JERBED 17:05 → UNDOADMOB 17:05 → J4W 21:43 → JERBED 21:43 → J4W 12-02 11:29
PROVIDERS: ADMIT Internal Medicine; ATTEND Family Medicine
PROC: 3E033GC Introduction of Other Therapeutic Substance into Peripheral Vein, Percutaneous Approach (ICD-10-PCS; principal; 2020-12-02)
DX: I25.10 Atherosclerotic heart disease of native coronary artery without angina pectoris (principal); I11.9 Hypertensive heart disease without heart failure; R07.9 Chest pain, unspecified; R77.8 Other specified abnormalities of plasma proteins; R06.02 Shortness of breath; E66.01 Morbid (severe) obesity due to excess calories; Z68.41 Body mass index [BMI] 40.0-44.9, adult; Z29.9 Encounter for prophylactic measures, unspecified; J44.9 Chronic obstructive pulmonary disease, unspecified
CPT/HCPCS: 36415; 71275-TC; 78452-TC; 80048; 80053; 80061; 83036; 84443; 84484; 85025; 85610; 85730; 93005; 93010; 93017; 93306-TC; 99285-25; A9502; C1887; G0378; J1644; J2785; Q9967

== ENCOUNTER 2020-12-11 08:45 | Emergency (ER) | payer OTHER ==
[2020-12-11 08:58] VITALS: TEMP 97.7; BMI 39.9
[2020-12-11 09:53] VITALS: BP 128/97; PULSE 62
== END 2020-12-11 10:09 | disposition home or self-care (01) ==
LOC: JER 08:45
DX: I10 Essential (primary) hypertension (principal); Z91.19 Patient's noncompliance with other medical treatment and regimen
CPT/HCPCS: 99281-25

== ENCOUNTER 2022-05-04 13:50 | Emergency (ER) | payer OTHER ==
[2022-05-04 14:54] VITALS: BP 119/76; PULSE 56; RESP 18; TEMP 98.4; BMI 39.1
[2022-05-04] MEDS ORDERED: MAG HYDROX/AL HYDROX/SIMETH -MYLANTA- ORAL SUSPENSION PO ONE (15:09)
[2022-05-04] MEDS ORDERED: ACETAMINOPHEN 1000 MG/100 ML BAG IVPB ONE (15:09)
[2022-05-04] MEDS ORDERED: FAMOTIDINE 20 MG/50 ML IVPB 20 MG/50 ML MG IVPB ONE ×2 (15:09→16:10)
[2022-05-04] MEDS ORDERED: ACETAMINOPHEN INJECTION 100 ML IVPB ONE (16:10)
[2022-05-04] MEDS ORDERED: MAG HYDROX/AL HYDROX/SIMETH 30 ML UNIT-DOSE CUP ONE (16:10)
[2022-05-04 16:16] LABS: BASO % 0.3 % (0-2.0); EOS % 3.4 % (0-4.5); HEMATOCRIT 44.4 % (35.4-49); MCH 28.4 pg (25.7-33.7); MCHC 33.8 g/dl (32.0-35.9); MEAN CELL VOLUME 84.3 fl (80-96); MEAN PLT VOLUME 7.8 fl (7.5-11.1); NEUT % 53.3 % (42.8-82.8); PLATELET COUNT 242 10^3/uL (134-434); RBC 5.27 M/mm3 (4.00-5.60); RDW 13.8 % (11.9-15.9); WHITE BLOOD COUNT 6.6 K/mm3 (4.0-10.0)
[2022-05-04 16:22] LABS: INR 0.98 (0.83-1.09); PROTHROMBIN TIME (PATIENT) 11.4 SEC (9.7-13.0)
[2022-05-04 16:24] LABS: ACTIVATED PTT 36.3 SECONDS (25.2-36.5)
[2022-05-04 16:40] LABS: CALCIUM 9.1 mg/dL (8.5-10.1)
[2022-05-04 16:41] LABS: ALBUMIN 3.6 g/dl (3.4-5.0); BLOOD UREA NITROGEN 13.3 mg/dL (7-18)
[2022-05-04 16:44] LABS: CREATININE 1.3 mg/dL (0.55-1.3)
[2022-05-04 16:45] LABS: BILIRUBIN,TOTAL 0.6 mg/dL (0.2-1); TOT PROT 7.4 g/dl (6.4-8.2)
[2022-05-04] MEDS ORDERED: ASPIRIN 81 MG CHEWABLE TABLETS PO ONE (17:08)
== END 2022-05-04 17:45 | disposition left against medical advice (07) ==
LOC: JER 13:50
PROC: 3E033GC Introduction of Other Therapeutic Substance into Peripheral Vein, Percutaneous Approach (ICD-10-PCS; principal; 2022-05-04)
PROC: 3E033NZ Introduction of Analgesics, Hypnotics, Sedatives into Peripheral Vein, Percutaneous Approach (ICD-10-PCS; 2022-05-04)
DX: R77.8 Other specified abnormalities of plasma proteins (principal); R07.9 Chest pain, unspecified
CPT/HCPCS: 36415; 71045-TC-FY; 80053; 83690; 84484; 85025; 85610; 85730; 93005; 93010; 99285-25